=== PATIENT | female | born 1995 | race Caucasian/White ===

== ENCOUNTER 2022-05-05 04:14 | Emergency (ER) | payer SELFPAY ==
[~2022-05-05] VITALS: Ht 170.2 cm; Wt 72.6 kg
--- NOTE | 2022-05-05 04:14 | NUR ---
PT BIB [facility], PREBOOK. TAKEN TO CHAIR
--- NOTE | 2022-05-05 04:27 | NUR ---
Patient discharged with v/s stable. Written and verbal after care instructions given and explained. Patient verbalized understanding. Ambulatory with steady gait. All questions addressed prior to discharge. Advised to follow up with PMD.
== END 2022-05-05 04:27 ==
LOC: MED 04:14
DX: Z02.89 Encounter for other administrative examinations (principal)
CPT/HCPCS: 99283